=== PATIENT | female | born 1995 ===

== ENCOUNTER 2017-07-10 13:15 | Emergency (ER) | payer BC ==
[2017-07-10 13:20] VITALS: TEMP 97.4; O2SAT 99
--- NOTE | 2017-07-10 13:50 | C.PDOC ---
History Of Present Illness 22 yr old female presents to the ER stating she had a pilonidal cyst removal done on 06/30 in a outpatient surgical center and over the past 2 days she has noticed the area has clear blood/yellow material and is itchy. Patient states she is concerned the sutures may have opened. Patient denies fever, chills, swelling to the area, weakness or numbness. Time Seen by Provider: 07/10/17 13:34 Chief Complaint (Nursing): Wound Check History Per: Patient History/Exam Limitations: no limitations Onset/Duration Of Symptoms: Days Ago Past Medical History Reviewed: Historical Data, Nursing Documentation, Vital Signs Vital Signs: Last Vital Signs Temp 97.4 F L 07/10/17 13:20 Pulse 75 07/10/17 13:54 Resp 16 07/10/17 13:54 BP 110/65 07/10/17 13:54 Pulse Ox 99 07/10/17 22:33 Family History: States: No Known Family Hx - Social History Hx Alcohol Use: No Hx Substance Use: Yes - Immunization History Hx Tetanus Toxoid Vaccination: No Hx Influenza Vaccination: No Hx Pneumococcal Vaccination: No Review Of Systems Except As Marked, All Systems Reviewed And Found Negative. Constitutional: Negative for: Fever, Chills Neurological: Negative for: Weakness, Numbness Physical Exam - Physical Exam Appears: Non-toxic, No Acute Distress Skin: Warm, Dry, No Rash, Other (Sutured wound to the coccyx region. 1 sutures appears to be loose. No swelling. No tenderness. No erythema. ) Head: Atraumatic, Normacephalic Eye(s): bilateral: Normal Inspection, PERRL, EOMI Oral Mucosa: Moist Extremity: Normal ROM Neurological/Psych: Oriented x3, Normal Speech, Normal Motor Gait: Steady ED Course And Treatment O2 Sat by Pulse Oximetry: 99 (RA) Pulse Ox Interpretation: Normal Medical Decision Making Medical Decision Making: NOTE: Physical exam shows the wound is healing with no evidence of cellulitis or wound dehisence at this time. Patient to be discharge with bacitracin and instructed to follow up with her surgeon this week. Disposition - Disposition Referrals: [facility] [Outside] Disposition: HOME/ ROUTINE Disposition Time: 13:48 Condition: GOOD Additional Instructions: Wash twice a day with soap and water and then apply bacitracin. Follow up with your surgeon this week without fail. Return if worsened. Prescriptions: Bacitracin Ointment [Bacitracin] 30 gm TOP BID #1 tube Instructions: Acute Wound Care (ED) Forms: [employer] (Ukrainian) - Clinical Impression Clinical Impression: Visit for wound check - PA / [employer] ATTENDANT / Resident Statement MD/DO has reviewed & agrees with the documentation as recorded. - Scribe Statement The provider has reviewed the documentation as recorded by the Scribe Sendy Green All medical record entries made by the Scribe were at my direction and personally dictated by me. I have reviewed the chart and agree that the record accurately reflects my personal performance of the history, physical exam, medical decision making, and the department course for this patient. I have also personally directed, reviewed, and agree with the discharge instructions and disposition.
[2017-07-10 13:59] VITALS: BP 110/65; PULSE 75; RESP 16
== END 2017-07-10 13:54 | disposition home or self-care (01) ==
LOC: C.ER 13:15
DX: Z48.817 Encounter for surgical aftercare following surgery on the skin and subcutaneous tissue (principal)